=== PATIENT | female | born 1995 | race Asian ===

== ENCOUNTER 2023-10-15 16:52 | Emergency (ER) | payer SELFPAY ==
[2023-10-15 17:53] VITALS: O2SAT 100
[2023-10-15 18:07] LABS: BASOPHILS % (AUTO) 0.9 %; EOSINOPHILS # (AUTO) 0.2 10^3/uL (0.0-0.7); EOSINOPHILS % (AUTO) 4.7 %; HCT - HEMATOCRIT 43.6 % (37.0-47.0); HGB - HEMOGLOBIN 13.7 g/dL (12.0-16.0); LYMPHOCYTES # (AUTO) 1.2 10^3/uL (1.5-3.5); LYMPHOCYTES % (AUTO) 27.6 %; MEAN CORPUSCULAR HEMOGLOBIN 25.6 pg (27.0-31.0); MEAN CORPUSCULAR HGB CONC 31.4 g/dL (32.0-36.0); MEAN CORPUSCULAR VOLUME 81.3 fL (81.0-99.0); MONOCYTES # (AUTO) 0.3 10^3/uL (0.0-1.0); NEUTROPHILS # (AUTO) 2.6 10^3/uL (1.5-6.6); NEUTROPHILS % (AUTO) 59.6 %; PLT - PLATELET COUNT 281 10^3/uL (130-450); RED BLOOD COUNT 5.36 10^6/uL (4.20-5.40); RED CELL DISTRIBUTION WIDTH 14.4 % (12.0-15.0); WHITE BLOOD COUNT 4.3 x10^3/uL (4.8-10.8)
[2023-10-15 18:48] LABS: ALBUMIN 4.8 g/dL (3.2-5.5); ALBUMIN/GLOBULIN RATIO 1.6 (1.0-2.2); BILIRUBIN,TOTAL 3.9 mg/dL (0.2-1.0); CALCIUM 9.7 mg/dL (8.5-10.3); CREATININE 0.9 mg/dL (0.6-1.3); POTASSIUM 3.5 mmol/L (3.5-4.5); TOTAL PROTEIN 7.8 g/dL (6.4-8.9)
[2023-10-15 20:17] LABS: BILIRUBIN,URINE SMALL (NEGATIVE); GLUCOSE, URINE (UA) NEGATIVE (NEGATIVE); KETONES,URINE (UA) TRACE mg/dL (NEGATIVE); LEUKOCYTE ESTERASE, URINE NEGATIVE (NEGATIVE); NITRITE,URINE NEGATIVE (NEGATIVE); OCCULT BLOOD,URINE NEGATIVE (NEGATIVE); PROTEIN,URINE NEGATIVE (NEGATIVE); UROBILINOGEN,URINE 1 (NORMAL) E.U./dL (NORMAL)
[2023-10-15 20:20] LABS: CLARITY,URINE CLEAR (CLEAR)
[2023-10-15 20:39] VITALS: BP 118/78
--- NOTE | 2023-10-15 20:40 | ED Physician Documentation ---
PD HPI ABD PAIN - Stated complaint Stated Complaint: ABD PX, SOB - Chief complaint Chief Complaint: Abd Pain - Additional information Additional information: 28-year-old female with no pertinent past medical history known cholelithiasis presents emergency department for midepigastric pain that radiates to her back. Patient says that it started yesterday after eating a fatty meal and it has gotten more severe over time. 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 - Past Surgical History Past Surgical History: No - Present Medications Home Medications: Ambulatory Orders Medication Instructions Recorded Confirmed HYDROcod/ACETAM 5/325 [[place] 5/325] 1 tab PO Q6H PRN #8 tab 10/15/23 Ondansetron Odt [Zofran Odt] 4 mg TL Q6H PRN #10 tablet 10/15/23 - Allergies Allergies/Adverse Reactions: Allergies Allergy/AdvReac Type Severity Reaction Status Date / Time No Known Drug Allergies Allergy Verified 10/15/23 17:49 - Social History Does the pt smoke?: No Smoking Status: Never smoker Does the pt drink ETOH?: No Does the pt have substance abuse?: No - Immunizations Immunizations are current?: Yes - POLST Patient has POLST: No PD ED PE NORMAL - Vitals Vital signs reviewed: Yes - General General: Alert and oriented X 3, No acute distress, Well developed/nourished - HEENT HEENT: Atraumatic - Abdomen Abdomen: Normal bowel sounds, Soft, No organomegaly, Other (mid-epigastric tenderness) - Back Back: No CVA TTP - Derm Derm: Normal color, Warm and dry - Psych Psych: Normal mood Results - Vitals Vitals: Vital Signs - 24 hr 10/15/23 10/15/23 17:40 19:45 Temperature 36.1 C L Heart Rate 63 62 Respiratory 17 18 Rate Blood Pressure 127/68 118/78 O2 Saturation 100 100 Oxygen O2 Source Room air - Labs Labs: Laboratory Tests 10/15/23 10/15/23 10/15/23 18:00 18:00 20:10 WBC 4.3 L RBC 5.36 Hgb 13.7 Hct 43.6 MCV 81.3 MCH 25.6 L MCHC 31.4 L RDW 14.4 Plt Count 281 MPV 9.0 Neut # (Auto) 2.6 Lymph # (Auto) 1.2 L Yancey # (Auto) 0.3 Eos # (Auto) 0.2 Baso # (Auto) 0.0 Absolute Nucleated RBC 0.00 Nucleated RBC % 0.0 Sodium 139 Potassium 3.5 Chloride 104 Carbon Dioxide 27 Anion Gap 8.0 BUN 9 Creatinine 0.9 Estimated GFR (MDRD) 75 L Glucose 130 H Calcium 9.7 Total Bilirubin 3.9 H AST 685 H ALT 992 H Alkaline Phosphatase 149 H Total Protein 7.8 Albumin 4.8 Globulin 3.0 Albumin/Globulin Ratio 1.6 Lipase 12 Urine Color YELLOW Urine Clarity CLEAR Urine pH 6.0 Ur Specific [place] 1.015 Urine Protein NEGATIVE Urine Glucose (UA) NEGATIVE Urine Ketones TRACE Urine Occult Blood NEGATIVE Urine Nitrite NEGATIVE Urine Bilirubin SMALL H Urine Urobilinogen 1 (NORMAL) Ur Leukocyte Esterase NEGATIVE Ur Microscopic Review NOT INDICATED Urine Culture Comments NOT INDICATED - Rads (name of study) Limited abdominal ultrasound Relevant Findings:: Final report received, EMP independent interpretation of test, Other (Cholelithiasis without cholecystitis) PD Medical Decision Making - ED course ED course: 28-year-old female presents emergency department for midepigastric pain that radiates to her back. Labs are complete for further evaluation her lipase is within normal limits white count is slightly suppressed at 4.3, AST ALT and alk phos are also elevated limited abdominal ultrasound was complete which reveals cholelithiasis without cholecystitis mild the dilated common bile duct measuring up to 9.1 mm without choledocholithiasis identified. She also has hepatic echogenicity. Pain significantly improved after receiving antinausea medication as well as intramuscular Dilaudid. Patient told to follow-up with her primary care provider for further evaluation of this and to have labs reevaluated she [place] and said that when she returns home she plans on following up with primary care provider. I am prescribing a short course of short-acting opioid pain medication for this patient. I have reviewed the patients [employer]PERATOR and no concerning findings were noted. I have discussed that the opioids are for short term therapy only, and will not be refilled from the ED. strict ER return precautions given. Departure - Departure Disposition: 01 Home, Self Care Clinical Impression: Gallstones, Biliary colic Instructions: Gallstones Tx, Gallstones Dc, ED Gallstone W Biliary Colic Prescriptions: HYDROcod/ACETAM 5/325 [[place] 5/325] 1 tab PO Q6H PRN #8 tab PRN Reason: Pain >8 Ondansetron Odt [Zofran Odt] 4 mg TL Q6H PRN #10 tablet PRN Reason: Nausea / Vomiting Comments: Thank you for trusting us with your care. We have completed an ultrasound and it appears that you still have some gallstones. Please follow-up with your primary care provider for further evaluation and possible surgical referral for having gallbladder removed please come back to the ER if you are noticing any signs or symptoms of infection which include fevers chills worsening nausea vomiting worsening abdominal pain. I am prescribing a short course of narcotic pain medication for you. These are potentially dangerous and addictive medications that should be used carefully. These medications may constipate you. Take an [id number] stool softener (docusate) twice daily with plenty of water while taking these medications. If you go 24 hours without a bowel movement, take [id number] miralax, per package instructions. Do not drink or drive while taking these medications. If you received narcotic or sedating medications while in the emergency department, do not drive for 24 hours. Store this medication in a safe, secure place and out of reach of children. It is a violation of federal law to give or sell this medication to another person or to use in a manner other than prescribed. The ED will not refill narcotic prescriptions, including prescriptions lost or stolen. To dispose of unwanted medications: 1. [facility] [address] in [place] has a medication drop box. They accept prescription medications (in pill form) Thursday through Thursday 9:00 a.m. to 5:00 p.m. 2. [facility] accepts prescription medications (in pill form only) for disposal year round. Call for more i nformation. 3. Contact the [facility] for the next [facility] sponsored prescription drug collection event. , [phone], or [phone]; Note that many narcotic pain relievers also contain Tylenol/acetaminophen. Please ensure that your total dose of acetaminophen from all sources does not exceed 3 g (3000 mg) per day. Forms: PCP List Discharge Date/Time: 10/15/23 22:00
[2023-10-15] MEDS: HYDROmorphone 0.5 MG/0.5 ML SYRINGE IM STA (20:56)
[2023-10-15] MEDS: ONDANSETRON ODT 4 MG TABLET TL STA (20:56)
[2023-10-15] MEDS: ACETAMINOPHEN 325 MG TABLET PO STA (20:56)
[2023-10-15] MEDS: oxyCODONE 5 MG TABLET PO STA (21:44)
[2023-10-15] MEDS: ONDANSETRON ODT 4 MG Prepack 2 TL PRN (21:53)
[2023-10-15] MEDS: HYDROcod/ACET 5/325 Prepack 4 PO STA (21:53)
--- NOTE | 2023-10-15 23:33 | Ultrasound Report ---
PROCEDURE: Abdomen Limited INDICATIONS: known gallstones, RUQ pain TECHNIQUE: Real-time focused scanning was performed of the abdomen, with image documentation. COMPARISONS: None. FINDINGS: Liver: Liver is normal in size and homogeneous in echotexture. Increased hepatic echogenicity sugges tive of steatosis. Main portal vein is patent with appropriate hepatopedal flow. Gallbladder: Cholelithiasis without wall thickening. Biliary ducts: Intrahepatic bile ducts are non-dilated. Extrahepatic bile duct caliber measures 9.1 mm. Normal is 6-7 mm or less in diameter, or 10 mm or less post-cholecystectomy. Pancreas: Visualized portions of the pancreas are sonographically normal. Right kidney: Normal in size and echotexture. Right kidney measures 11.6 cm long. No hydronephrosis or nephrolithiasis. No solid masses. No complex renal cystic lesions which require follow-up. IVC: Intrahepatic inferior vena cava is patent. Miscellaneous: No free abdominal fluid. IMPRESSION: Cholelithiasis without sonographic evidence of acute cholecystitis. Mildly dilated common bile duct measuring up to 9.1 mm without choledocholithiasis identified. Mildly increased hepatic echogenicity can be seen in the setting of hepatic steatosis. Reviewed by: Elenita Allen MD, PhD on 10/15/2023 11:32 PM PDT Approved by: Elenita Allen MD, PhD on 10/15/2023 11:32 PM PDT Station ID: [id number]
== END 2023-10-15 22:00 | disposition home or self-care (01) ==
LOC: ED 16:52
DX: K80.70 Calculus of gallbladder and bile duct without cholecystitis without obstruction (principal)
CPT/HCPCS: 36415; 76705; 80053; 81003; 83690; 85025; 96372; 99284; A9270; J1170; Q0162; 81001; 87086